=== PATIENT | male | born 1985 | race Caucasian/White ===

== ENCOUNTER 2020-02-28 20:29 | Emergency (ER) | payer BC ==
[~2020-02-28] VITALS: Ht 157.5 cm; Wt 81.0 kg
[2020-02-28 20:54] VITALS: Ht 157.5 cm; Wt 81.0 kg
[2020-02-28 21:53] VITALS: BP 134/100
== END 2020-02-28 21:53 | disposition home or self-care (01) ==
LOC: ED 20:29
DX: M54.2 Cervicalgia (principal); R51 Headache; G89.29 Other chronic pain